=== PATIENT | female | born 1990 | race Two or more races ===

== ENCOUNTER 2016-06-28 15:48 | Emergency (ER) | payer OTHER ==
[2016-06-28 16:06] VITALS: BP 123/69; PULSE 105; TEMP 97.5; BMI 21.2
--- NOTE | 2016-06-28 18:14 | PDOC ---
History of Present Illness - General Chief Complaint: Chest Pain Stated Complaint: CHEST PAIN, HIGH BLOOID PRESSURE Time Seen by Provider: 06/28/16 17:29 History Source: Patient Exam Limitations: No Limitations - History of Present Illness Initial Comments: 06/28/16 18:11 Chief complaint: Chest tightness, choking sensation, palpitations, shakiness, realized numbness feeling and elevated blood pressure at work today History of present illness: Patient is a 25-year-old female with questionable thyroid disorder here today due to sudden onset of chest tightness choking sensation and shortness of breath with palpitations and shakiness and generalized paresthesia with elevated blood pressure while at work today stating approximately 2 hours. 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 Patient is not on any control. Patient reports that she was told by her primary care provider that she had a thyroid problem and needed to have further testing which she did not this past year. Patient reports that she has had these same symptoms intermittently for 2 years. Reports that she was worried today about her being sick recently. She denies any edema of her legs. Or any recent travel. Patient reports that she had been sick approximately 1 week ago with influenza-like symptoms. Patient denies any cough or sore throat nasal congestion, nausea or vomiting. She denies feeling depressed. 06/28/16 18:14 06/28/16 18:52 06/28/16 18:52 Timing/Duration: intermittent Severity: mild Associated Symptoms: reports: chest pain (tightness), shortness of breath (with chest tightness), other (today at work sudden onset of palpitations, choking sensation, chest tightness, shakiness, generalized parenthesia lasted approx 2 hrs ). denies: cough Past History - Past Medical History Allergies/Adverse Reactions: Allergies Allergy/AdvReac Type Severity Reaction Status Date / Time No Known Allergies Allergy Verified 06/28/16 16:00 Home Medications: Ambulatory Orders NK [No Known Home Medication] 07/16/15 Other medical history: denies - Psycho/Social/Smoking Cessation Hx Anxiety: No Suicidal Ideation: No Smoking History: Never smoked Hx Alcohol Use: No Drug/Substance Use Hx: No Substance Use Type: None Review of Systems - Review of Systems Able to Perform ROS?: Yes Constitutional: No: Symptoms Reported HEENTM: No: Symptoms Reported, Difficulty Swallowing Respiratory: Yes: Shortness of Breath (when having chest tightness) Cardiac (ROS): Yes: Palpitations, Chest Tightness. No: Chest Pain ABD/GI: No: Symptoms Reported : No: Symptoms Reported Musculoskeletal: No: Symptoms Reported Integumentary: No: Symptoms Reported Neurological: No: Symptoms reported *Physical Exam - Vital Signs Last Vital Signs Temp Pulse Resp BP Pulse Ox 97.5 F L 105 H 16 123/69 100 06/28/16 16:00 06/28/16 16:00 06/28/16 16:00 06/28/16 16:00 06/28/16 16:00 - Physical Exam General Appearance: Yes: Appropriately Dressed HEENT: positive: Normal ENT Inspection Neck: negative: Tender, Decreased range of motion, Lymphadenopathy (R), Lymphadenopathy (L), Rigidity, Tender lateral, Tender midline, Thyromegaly Respiratory/Chest: positive: Lungs Clear, Normal Breath Sounds. negative: Chest Tender, Respiratory Distress Cardiovascular: positive: Regular Rhythm, Regular Rate, S1, S2 Integumentary: positive: Normal Color Neurologic: positive: Alert, Normal Response, Responsive Heart Score/ECG Review - ECG Impressions Comment:: 06/28/16 18:[address] Daisy padilla's ED Treatment Course - LABORATORY CBC & Chemistry Diagram: 06/28/16 18:44 Medical Decision Making - Medical Decision Making 06/28/16 18:14 Patient is a 25-year-old female with questionable thyroid disorder here today due to sudden onset of chest tightness choking sensation and shortness of breath with palpitations and shakiness and generalized paresthesia with elevated blood pressure while at work today stating approximately 2 hours. 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 Patient is not on any control. Patient reports that she was told by her primary care provider that she had a thyroid problem and needed to have further testing which she did not this past year. Patient reports that she has had these same symptoms intermittently for 2 years. Reports that she was worried today about her being sick recently. She denies any edema of her legs. Or any recent travel. Patient reports that she had been sick approximately 1 week ago with influenza-like symptoms. Patient denies any cough or sore throat nasal congestion, nausea or vomiting. Patient reports that she does not use control. 06/28/16 18:55 Rule out anemia Rule out thyroid dysfunction Rule out panic attack like symptoms Plan: CBC with differential TSH free T 3 Free T4 Urine hCG 06/28/16 19:13 Laboratory Tests 06/28/16 18:44 WBC 8.0 RBC 4.42 Hgb 13.1 Hct 39.4 MCV 89.2 MCHC 33.3 RDW 13.2 Plt Count 287 MPV 9.5 Neutrophils % 81.7 Lymphocytes % 12.7 Monocytes % 5.2 Eosinophils % 0.2 Basophils % 0.2 06/28/16 19:36 Laboratory Tests 06/28/16 06/28/16 18:44 18:44 TSH 0.57 Free T4 1.22 06/28/16 19:37 06/28/16 20:02 Laboratory Tests 06/28/16 06/28/16 06/28/16 18:44 18:44 18:44 TSH 0.57 Free T4 1.22 Free T3 Pending Urine HCG, Qual 06/28/16 19:40 TSH Free T4 Free T3 Urine HCG, Qual Negative Follow Up with your primary care provider within the next few days *DC/Admit/Observation/Transfer Diagnosis at time of Disposition: Feeling of chest tightness - Discharge Dispostion Disposition: HOME Condition at time of disposition: Stable - Referrals Referrals: Alejo Meraz MD [Primary Care Provider] - - Patient Instructions Additional Instructions: Follow up with your care provider within the next 2 days Return to emergency room if any difficulty breathing Patient voiced understanding of discharge instructions and all questions were answered - Post Discharge Activity Work/School Note: Back to Work
[2016-06-28 18:50] LABS: BASOPHIL 0.2 % (0-2.0); EOSINOPHIL 0.2 % (0-4.5); MCH 29.7 pg (25.7-33.7); MCHC 33.3 g/dl (32.0-36.0); MEAN CELL VOLUME 89.2 fl (80-96); MEAN PLT VOLUME 9.5 fl (7.5-11.1); NEUTROPHILS 81.7 % (42.8-82.8); PLATELET COUNT 287 K/MM3 (134-434); RDW 13.2 % (11.6-15.6)
--- NOTE | 2016-06-30 15:11 | EKG ---
Test Reason : Blood Pressure : / mmHG Vent. Rate : 090 BPM Atrial Rate : 090 BPM P-R Int : 116 ms QRS Dur : 074 ms QT Int : 338 ms P-R-T Axes : 068 029 000 degrees QTc Int : 413 ms POOR DATA QUALITY, INTERPRETATION MAY BE ADVERSELY AFFECTED NORMAL SINUS RHYTHM NORMAL ECG NO PREVIOUS ECGS AVAILABLE Confirmed by REX BENAVIDEZ MD ([id number]) on 06/30/2016 3:11:06 PM Referred By: Confirmed By:REX BENAVIDEZ MD
== END 2016-06-28 20:25 | disposition home or self-care (01) ==
LOC: JER 15:48 → JERFT 15:48
DX: R07.89 Other chest pain (principal)
CPT/HCPCS: 36415; 84439; 84443; 84481; 84703; 85025; 93005; 93010; 99281-25

== ENCOUNTER 2016-11-09 21:07 | Emergency (ER) | payer OTHER ==
[2016-11-09 21:59] VITALS: BP 125/75; PULSE 82; TEMP 98.2; BMI 21.2
--- NOTE | 2016-11-09 23:17 | PDOC ---
History of Present Illness - General History Source: Patient <Jc Titus - Last Filed: 11/09/16 23:26> - General History Source: Patient Exam Limitations: No Limitations - History of Present Illness Initial Comments: 11/09/16 23:32 The patient is a 26 year old female with significant past medical history migraine headache and anxiety who presents to the ED for few months of intermittent right-sided chest pain. Patient describes her chest pain as sharp in nature with no exacerbating or alleviating factors. Denies lightheadedness, diaphoresis, SOB, palpitations, jaw pain, shoulder pain, arm pain, nausea, or vomiting. States having similar symptoms in the past, where she had a normal ECG. Patient also has complaints of left-sided headache and neck pain with right eye blurry vision. She states her headache is different from her normal migraine headaches. Denies paresthesias or bladder/urinary incontinence. The patient denies fever, chills, cough, abdominal pain, and diarrhea. Allergies: NKDA Social History: No alcohol, tobacco, or drug use reported. Past Surgical History: None reported PCP: Dr. Alejo Meraz <Winnie Gracia - Last Filed: 11/09/16 23:33> - General Chief Complaint: Migraine Headache Stated Complaint: CHEST PAIN Time Seen by Provider: 11/09/16 22:53 Past History - Psycho/Social/Smoking Cessation Hx Anxiety: No Suicidal Ideation: No Smoking History: Never smoked Have you smoked in the past 12 months: No Information on smoking cessation initiated: No Hx Alcohol Use: No Drug/Substance Use Hx: No Substance Use Type: None <Jc Titus - Last Filed: 11/09/16 23:26> <Winnie Gracia - Last Filed: 11/09/16 23:33> - Past Medical History Allergies/Adverse Reactions: Allergies Allergy/AdvReac Type Severity Reaction Status Date / Time No Known Allergies Allergy Verified 06/28/16 16:00 Home Medications: Ambulatory Orders Metoclopramide HCl [Reglan] 10 mg PO BID #20 tablet 11/09/16 Naproxen [Naprosyn -] 500 mg PO BID #20 tablet 11/09/16 Review of Systems - Review of Systems Able to Perform ROS?: Yes Comments:: 11/09/16 23:32 CONSTITUTIONAL: Absent: fever, no chills, no fatigue EYES: +right eye blurry vision ENT: +neck pain Absent: ear pain, no sore throat CARDIOVASCULAR: +right-sided chest pain Absent: no palpitations RESPIRATORY: Absent: cough, no SOB GI: Absent: abdominal pain, no nausea, no vomiting, no constipation, no diarrhea GENITOURINARY: Absent: dysuria, no frequency, no hematuria MUSCULOSKELETAL: Absent: back pain, no arthralgia, no myalgia SKIN: Absent: rash NEURO: +left sided headache <Winnie Gracia - Last Filed: 11/09/16 23:33> *Physical Exam - Vital Signs Last Vital Signs Temp Pulse Resp BP Pulse Ox 98.2 F 82 14 125/75 99 11/09/16 21:56 11/09/16 21:56 11/09/16 21:56 11/09/16 21:56 11/09/16 21:56 <Jc Titus - Last Filed: 11/09/16 23:26> - Vital Signs Last Vital Signs Temp Pulse Resp BP Pulse Ox 98.2 F 82 14 125/75 99 11/09/16 21:56 11/09/16 21:56 11/09/16 21:56 11/09/16 21:56 11/09/16 21:56 - Physical Exam Comments: 11/09/16 23:32 GENERAL: Well-appearing, well-nourished. No apparent distress. HEENT: Normocephalic, atraumatic. PERRL, EOM intact. CARDIOVASCULAR: Normal S1, S2. Regular rate and rhythm. PULMONARY: Clear to auscultation bilaterally. ABDOMEN: Soft, non-distended, non-tender. EXTREMITIES: Normal ROM in all four extremities. No gross deformities. SKIN: Warm, dry. No rash NEUROLOGICAL: No focal neurological deficits. <Winnie Gracia - Last Filed: 11/09/16 23:33> Heart Score/ECG Review - ECG Impressions Comment:: 11/09/16 23:21 NSR @81bpm Normal ECG <Winnie Gracia - Last Filed: 11/09/16 23:33> Medical Decision Making - Medical Decision Making 11/09/16 23:28 Dr. Sinisterra: The scribe's documentation has been prepared under my direction and personally reviewed by me in its entirery. I confirm that the note above accurately reflects all work, treatment, procedures, and medical decision making performed by me. <Jc Titus - Last Filed: 11/09/16 23:26> *DC/Admit/Observation/Transfer - Discharge Dispostion Admit: No <Jc Titus - Last Filed: 11/09/16 23:26> - Attestations Scribe Attestion: 11/09/16 23:32 Documentation prepared by Winnie Gracia, acting as medical health researcher for Jc Titus MD/DO. <Winnie Gracia - Last Filed: 11/09/16 23:33> Diagnosis at time of Disposition: Headache Qualifiers: Headache type: unspecified Headache chronicity pattern: unspecified pattern Intractability: not intractable Qualified Code(s): R51 - Headache - Discharge Dispostion Disposition: HOME Condition at time of disposition: Stable - Prescriptions Prescriptions: Naproxen [Naprosyn -] 500 mg PO BID #20 tablet Metoclopramide HCl [Reglan] 10 mg PO BID #20 tablet - Referrals Referrals: Alejo Meraz MD [Primary Care Provider] - - Patient Instructions Printed Discharge Instructions: DI for Headache
[2016-11-09] MEDS ORDERED: NAPROXEN 500 MG TABLET (FP) PO ONE (23:24)
[2016-11-09] MEDS ORDERED: METOCLOPRAMIDE HCL 10 MG TABLET (FP) PO ONE ×2 (23:24→23:27)
[2016-11-09] MEDS ORDERED: NAPROXEN 500 MG TABLET (FP) ONE (23:26)
--- NOTE | 2016-11-10 11:33 | EKG ---
Test Reason : Blood Pressure : / mmHG Vent. Rate : 081 BPM Atrial Rate : 081 BPM P-R Int : 140 ms QRS Dur : 068 ms QT Int : 336 ms P-R-T Axes : 052 036 038 degrees QTc Int : 390 ms NORMAL SINUS RHYTHM NORMAL ECG WHEN COMPARED WITH ECG OF 28-JUN-2016 16:11, T WAVE INVERSION NO LONGER EVIDENT IN INFERIOR LEADS Confirmed by REX BENAVIDEZ MD ([id number]) on 11/10/2016 11:33:18 AM Referred By: Confirmed By:REX BENAVIDEZ MD
== END 2016-11-10 00:25 | disposition home or self-care (01) ==
LOC: JER 21:07
DX: R51 Headache (principal); G43.909 Migraine, unspecified, not intractable, without status migrainosus
CPT/HCPCS: 84703; 93005; 93010; 99281-25

== ENCOUNTER 2017-07-10 17:36 | Emergency (ER) | payer OTHER ==
[2017-07-10 18:03] VITALS: BP 117/76; PULSE 92; TEMP 98.6; BMI 20.9
--- NOTE | 2017-07-10 18:07 | PDOC ---
Rapid Medical Evaluation Chief Complaint: Pain, Acute Time Seen by Provider: 07/10/17 18:03 Medical Evaluation: Allergies Allergy/AdvReac Type Severity Reaction Status Date / Time No Known Allergies Allergy Verified 07/10/17 18:00 07/10/17 18:03 I performed a brief in-person evaluation of this patient. This patient presents with a chief complaint of pain in lower abdomen worse on the left than the right. Also reports pressure in mid lower abdomen with urination. Denies fever or chills Pertinent physical exam findings: NAD lungs clear bilateral abdomen mild tenderness to mid suprapubic area no cva tenderness I have ordered the following: urinalysis and urine culture The patient will proceed to the ED for further evaluation.
[2017-07-10 18:50] LABS: URINE APPEARANCE CLEAR; URINE BILIRUBIN NEGATIVE (NEGATIVE); URINE BLOOD NEGATIVE (NEGATIVE); URINE COLOR COLORLESS; URINE GLUCOSE (UA) NEGATIVE (NEGATIVE); URINE KETONE NEGATIVE (NEGATIVE); URINE LEUK ESTERASE NEGATIVE (NEGATIVE); URINE NITRITE NEGATIVE (NEGATIVE); URINE PROTEIN NEGATIVE (NEGATIVE); URINE UROBILINOGEN NEGATIVE mg/dL (0.2-1.0)
--- NOTE | 2017-07-10 19:20 | PDOC ---
History of Present Illness - General Chief Complaint: Pain, Acute Stated Complaint: PAIN, ACUTE Time Seen by Provider: 07/10/17 18:03 History Source: Patient Exam Limitations: No Limitations - History of Present Illness Initial Comments: 07/10/17 19:05 Patient is a 26-year-old female with history of endometriosis and right ovarian cyst presents with a left lateral lower abdominal pain for 3 days. Patient reports having tactile fever 2 days ago. Patient reports a pressure when having to urinate. Last menses on 05/28 and again on 06/24 usually last for 7 days however last was only 5 days. She was seen in the office of Dr. Francisco two weeks ago, ultrasound was performed and it showed a large cyst on the right small on the left. No N/V/D. no fever Past Medical History: Endometriosis, anxiety Allergies: No known allergies Medications: [Over the counter herbal meds] Family History: Non-contributory Social History: Denies smoking, alcohol use, or IVDU Review of Systems GENERAL/CONSTITUTIONAL: [No fever or chills. No weakness. No weight change.] HEAD, EYES, EARS, NOSE AND THROAT: [No change in vision. No ear pain or discharge. No sore throat. ] CARDIOVASCULAR: [No chest pain or shortness of breath.] RESPIRATORY: [No cough, wheezing, or hemoptysis.] GASTROINTESTINAL: [No nausea, vomiting, diarrhea or constipation. No rectal bleeding.] GENITOURINARY: [No dysuria, frequency, or change in urination.] MUSCULOSKELETAL: [No joint or muscle swelling or pain. No neck or back pain.] SKIN AND BREASTS: [No rash or easy bruising.] NEUROLOGIC: [No headache, vertigo, loss of consciousness, or loss of sensation.] PSYCHIATRIC: [No depression or anxiety.] ENDOCRINE: [No increased thirst. No abnormal weight change.] HEMATOLOGIC/LYMPHATIC: [No anemia, easy bleeding, or history of blood clots.] ALLERGIC/IMMUNOLOGIC: [No hives or skin allergy. No latex allergy.] Physical Exam: GENERAL: [The patient is awake, alert, and fully oriented, in no acute distress. ] HEAD: [Normal with no signs of trauma.] EYES: [Pupils equal, round and reactive to light, extraocular movements intact, sclera anicteric, conjunctiva clear.] ENT: [Ears normal, nares patent, oropharynx clear without exudates. Moist mucous membranes. No uvula deviation] NECK: [Normal range of motion, supple without lymphadenopathy, JVD, or masses.] LUNGS: [Breath sounds equal, clear to auscultation bilaterally. No wheezes, and no crackles.] HEART: [Regular rate and rhythm, normal S1 and S2 without murmur, rub or gallop. ] ABDOMEN: [Soft, normoactive bowel sounds. Generalized pain on palpation to abdomen more on suprapubic area. No guarding, no rebound. No masses. No bruising or abrasions] MUSCULOSKELETAL: [Normal range of motion, no edema. No clubbing or cyanosis. No cords, erythema, or tenderness. No CVA Tenderness with fist palpation.] NEUROLOGICAL: [Cranial nerves II through XII grossly intact. Normal speech, normal gait.] PSYCH: [Normal mood, normal affect.] SKIN: [Warm, Dry, normal turgor, no rashes or lesions noted.] Past History - Past Medical History Allergies/Adverse Reactions: Allergies Allergy/AdvReac Type Severity Reaction Status Date / Time No Known Allergies Allergy Verified 07/10/17 18:00 Home Medications: Ambulatory Orders NK [No Known Home Medication] 11/09/16 COPD: No DVT: No - Immunization History Immunization Up to Date: Yes - Suicide/Smoking/Psychosocial Hx Smoking History: Never smoked Have you smoked in the past 12 months: No Information on smoking cessation initiated: No Hx Alcohol Use: No Drug/Substance Use Hx: No Substance Use Type: None *Physical Exam - Vital Signs Last Vital Signs Temp Pulse Resp BP Pulse Ox 98.6 F 92 H 16 117/76 100 07/10/17 18:00 07/10/17 18:00 07/10/17 18:00 07/10/17 18:00 07/10/17 18:00 ED Treatment Course - LABORATORY CBC & Chemistry Diagram: 07/10/17 19:45 07/10/17 19:45 Medical Decision Making - Medical Decision Making 07/10/17 19:21 A/P: Patient here for evaluation of left lateral abdominal and torso pain however on physical examination patient is noted to have more of a suprapubic pain. Urinalysis, urine culture and urine were sent awaiting results 07/10/17 19:30 Laboratory Results - last 24 hr 07/10/17 07/10/17 18:25 19:15 Urine Color Colorless Urine Appearance Clear Urine pH 7.0 Ur Specific [place] 1.003 Urine Protein Negative Urine Glucose (UA) Negative Urine Ketones Negative Urine Blood Negative Urine Nitrite Negative Urine Bilirubin Negative Urine Urobilinogen Negative Ur Leukocyte Esterase Negative Urine HCG, Qual Negative Urine and urinalysis are negative. 07/10/17 19:51 Patient to be transferred to main emergency department for higher level of care , CBC, CMP, lipase ordered, CBC of abdomen and pelvis with IV contrast. Patient has recently had an ultrasound with which demonstrated bilateral ovarian cysts. Report to Nisha charge nurse and Yessica Pereira nurse practitioner. Patient ambulatory and stable for transfer. *DC/Admit/Observation/Transfer Diagnosis at time of Disposition: Ovarian cyst - Discharge Dispostion Disposition: HOME Condition at time of disposition: Stable - Referrals Referrals: Alejo Meraz MD [Primary Care Provider] - Dennis Moreno MD [Staff Physician] - - Patient Instructions Printed Discharge Instructions: DI for Ovarian Cyst Additional Instructions: Please follow up with Dr. Moreno as discussed. You may take Motrin pain. If you develop any severe abdominal pain, vaginal bleeding, or any new or worsening symptoms, please return to the ER. - Post Discharge Activity
[2017-07-10 19:50] LABS: BASO % 0.2 % (0-2.0); HEMOGLOBIN 13.6 GM/dL (10.7-15.3); MCH 30.1 pg (25.7-33.7); MCHC 33.3 g/dl (32.0-36.0); MEAN CELL VOLUME 90.3 fl (80-96); MEAN PLT VOLUME 9.5 fl (7.5-11.1); MONO % 7.8 % (3.8-10.2); PLATELET COUNT 225 K/MM3 (134-434); RBC 4.54 M/mm3 (3.60-5.2); RDW 13.5 % (11.6-15.6); WHITE BLOOD COUNT 4.6 K/mm3 (4.0-10.0)
--- NOTE | 2017-07-10 19:54 | PDOC ---
*Physical Exam - Vital Signs Last Vital Signs Temp Pulse Resp BP Pulse Ox 98.6 F 92 H 16 117/76 100 07/10/17 18:00 07/10/17 18:00 07/10/17 18:00 07/10/17 18:00 07/10/17 18:00 - Physical Exam Comments: 07/10/17 19:52 Sign-out received from fast track provider Andolino. Pt interviewed and examined. In short, patient is a 26 yo F with hx of endometriosis and ovarian cysts, presenting with L flank pain and abdominal pain x 3 days. Patient had ultrasound performed by IDANIA Moreno 2 weeks ago, positive for R ovarian cyst. Urine negative for UTI. Labs, CT ordered in fast track, will review. 07/10/17 20:28 Labs, urine unremarkable. Patient reassessed, awaiting CT. Patient refuses Toradol and Motrin, states "I can deal with this pain now, I don't like taking medicine." 07/10/17 23:58 CT results positive for ovarian cysts. Patient eloped prior to receiving CT results. ED Treatment Course - LABORATORY CBC & Chemistry Diagram: 07/10/17 19:45 07/10/17 19:45 - ADDITIONAL ORDERS Additional order review: Laboratory Results 07/10/17 07/10/17 19:15 18:25 Urine Color Colorless Urine Appearance Clear Urine pH 7.0 Ur Specific [place] 1.003 Urine Protein Negative Urine Glucose (UA) Negative Urine Ketones Negative Urine Blood Negative Urine Nitrite Negative Urine Bilirubin Negative Urine Urobilinogen Negative Ur Leukocyte Esterase Negative Urine HCG, Qual Negative 07/10/17 19:45 RBC 4.54 MCV 90.3 MCHC 33.3 RDW 13.5 MPV 9.5 Neutrophils % 64.0 D Lymphocytes % 27.0 D Monocytes % 7.8 Eosinophils % 1.0 D Basophils % 0.2 *DC/Admit/Observation/Transfer Diagnosis at time of Disposition: Ovarian cyst - Discharge Dispostion Disposition: HOME Condition at time of disposition: Stable Admit: No - Referrals Referrals: Alejo Meraz MD [Primary Care Provider] - Dennis Moreno MD [Staff Physician] - - Patient Instructions Printed Discharge Instructions: DI for Ovarian Cyst Additional Instructions: Please follow up with Dr. Moreno as discussed. You may take Motrin pain. If you develop any severe abdominal pain, vaginal bleeding, or any new or worsening symptoms, please return to the ER. - Post Discharge Activity
[2017-07-10 20:14] LABS: ALBUMIN 4.5 g/dl (3.4-5.0); ALK PHOS 141 U/L (45-117); ANION GAP 8 (8-16); BILIRUBIN,TOTAL 0.3 mg/dL (0.2-1.0); BLOOD UREA NITROGEN 8 mg/dL (7-18); CALCIUM 8.7 mg/dL (8.5-10.1); CHLORIDE 102 mmol/L (98-107); CO2 28 mmol/L (21-32); CREATININE 0.7 mg/dL (0.55-1.02); GLUCOSE,RANDOM 89 mg/dL (74-106); POTASSIUM 4.1 mmol/L (3.5-5.1); SGOT/AST 36 U/L (15-37); SGPT/ALT 54 U/L (12-78); SODIUM 138 mmol/L (136-145); TOT PROT 8.2 g/dl (6.4-8.2)
== END 2017-07-11 00:31 | disposition home or self-care (01) ==
LOC: JERFT 17:36 → JER 17:36
DX: N83.201 Unspecified ovarian cyst, right side (principal)
CPT/HCPCS: 36415; 74176-TC; 80053; 81003; 83690; 84703; 85025; 87086; 99282-25

== ENCOUNTER 2018-07-31 05:00 | Day surgery (SDC) | payer OTHER ==
[2018-07-30 10:43] VITALS: BMI 22.3
[2018-07-31] MEDS ORDERED: BUPIVACAINE HCL/PF 0.5% (5MG/ML) 10 ML VIAL ONE (07:44)
--- NOTE | 2018-07-31 07:48 | HP ---
History & Physical Update - Physical Physical: No Change - Assessment Assessment: No Change - Plan Plan: No Change (H&P reviwed, no changes, for laparoscopy ovarian cystectomy)
[2018-07-31] MEDS ORDERED: SODIUM CHLORIDE 0.9% P/F 10 ML VIAL IJ ONE (07:58)
[2018-07-31] MEDS ORDERED: ceFAZolin SODIUM 1 GM VIAL ONE (07:58)
[2018-07-31] MEDS ORDERED: LIDOCAINE HCL/PF 2% SDV 5ML VIAL ONE (07:58)
[2018-07-31] MEDS ORDERED: ROCURONIUM BROMIDE 50 MG/5 ML VIAL ONE (08:08)
[2018-07-31] MEDS ORDERED: MIDAZOLAM HCL 2 MG/2 ML SINGLE DOSE VIAL ONE (08:21)
[2018-07-31] MEDS ORDERED: ESMOLOL HCL 100,000 MCG/10 ML VIAL ONE (08:35)
[2018-07-31] MEDS ORDERED: ONDANSETRON 4 MG/2 ML VIAL IVPUSH PRN ×2 (08:43→10:53)
[2018-07-31] MEDS ORDERED: LACTATED RINGERS SOLUTION 1,000 ML IV SCH (08:45)
[2018-07-31] MEDS ORDERED: ceFAZolin SODIUM 1 GM VIAL IVPB ONE (09:15)
[2018-07-31] MEDS ORDERED: BACITRACIN 15 GM TUBE TOPICAL OINTMENT ONE (09:36)
[2018-07-31] MEDS ORDERED: NEOSTIGMINE METHYLSULFATE 0.5 MG/ML - 10 ML MDV ONE (09:50)
[2018-07-31] MEDS ORDERED: GLYCOPYRROLATE 0.2 MG/1 ML VIAL ONE (09:51)
[2018-07-31] MEDS ORDERED: KETOROLAC TROMETHAMINE 30 MG/1 ML VIAL ONE (09:51)
[2018-07-31] MEDS ORDERED: BUPIVACAINE HCL/PF 0.5% (5MG/ML) 10 ML VIAL IJ ONE (10:19)
[2018-07-31] MEDS ORDERED: oxyCODONE HCL 5 MG TABLET PO PRN (10:53)
[2018-07-31] MEDS ORDERED: IBUPROFEN 800 MG/8 ML IJ IVPB PRN (10:53)
[2018-07-31] MEDS ORDERED: IBUPROFEN 600 MG TABLET (FP) PO PRN (10:53)
[2018-07-31] MEDS ORDERED: ELECTROLYTE-148 SOLN 1,000 ML IV SCH (11:00)
[2018-07-31] MEDS ORDERED: ONDANSETRON 4 MG/2 ML VIAL ONE (13:10)
[2018-07-31] MEDS ORDERED: ONDANSETRON 4 MG/2 ML VIAL IVPB ONE (13:10)
--- NOTE | 2018-07-31 13:21 | OP ---
DATE OF OPERATION: 07/31/2018 PREOPERATIVE DIAGNOSES: Bilateral ovarian cysts, pelvic pain, rule out endometrioma. 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 SURGEON: Dennis Brownlee MD BUSINESS SUPPORT ADMINISTRATOR: Yari Tomlin MD ESTIMATED BLOOD LOSS: About 25 mL. DESCRIPTION OF OPERATION: Patient was taken to the operating room. Under adequate general anesthesia in dorsal lithotomy position, examination under anesthesia revealed external genitalia to be normal. Vagina was normal. Cervix was clean, no lesion. Uterus normal size. Adnexa: Palpable right adnexa in the cul-de-sac were noted. Then, with a weighted speculum in the vagina, anterior lip of the cervix was grasped with a single-tooth tenaculum. Hulka was introduced into the uterine cavity for manipulation. Then, Harrington was inserted. Patient was placed in dorsal lithotomy position, and a small infraumbilical skin incision was made. With a direct Visiport, a 5-mm trocar was introduced through the umbilical area. Then, camera was introduced, and under direct vision, a 10-mm trocar was introduced through the left hypogastric area and a 5-mm through the right hypogastric area. Visualization of the upper abdomen showed to be normal. Pelvic cavity: There was colon adherent to the cul-de-sac, and then, also, a large, 6-cm approximately endometrioma with a smooth surface cyst in the cul-de-sac with the right tube adherent to the surface of endometrioma. This cyst was also adherent to the uterosacral ligament, and there was evidence of endometriotic lesion on the bladder and also in the cul-de-sac area over the uterosacral ligament bilaterally. Then, also, there was a left ovarian cyst with endometriosis lesion on the surface of the ovary, and the left ovary also was adherent to the back of the uterus. At this time, the right ovary with the cyst was grasped, and then, the adhesions meticulously were lysed with the cautery and blunt dissection. The ovary was removed from the cul-de-sac area and brought up. Then, the right ovary was grasped with a grasper and then with LigaSure cautery, grasped, and the inner part of the cyst was entered. Then, there was a large amount of dark, old blood in the cyst which was drained, and then, the cyst sac was grasped with a grasper and dissected from the ovary completely. The edges of the ovary were cauterized, and hemostasis was established. At this time, the right ovary was irrigated. No active bleeding was seen. Then, the left ovary at this time was grasped, and then, adhesions were released from the cul-de-sac area with cautery and blunt dissection. Then, the ovary was released. Then, the ovary was entered. There was a 3-cm endometrioma which was drained, and the cyst wall was dissected from the ovary and removed. Hemostasis was established, and then, pelvic cavity several times irrigated. No active bleeding was seen. Both ovaries were freed from the cul-de-sac, and both tubes appeared to be normal. The pelvic cavity irrigated and then after irrigation, again, inner part of the ovary was inspected, and no bleeding was seen. At this time, Surgicel was placed in the inner part of both ovaries for complete hemostasis. Then, Interceed was wrapped around both ovaries. Then, at this time, the abdomen was emptied of all the gas. There was no bleeding. The left 10-mm trocar incision, the fascia, was closed with interrupted suture of 2-0 Vicryl. Then, the umbilical area also was closed with interrupted suture of 0 Vicryl, and the skin was closed with 4-0 Biosyn interrupted suture. Patient tolerated the procedure well, left the OR in good condition. DENNIS BROWNLEE M.D. [id number]
[2018-07-31] MEDS ORDERED: IBUPROFEN 600 MG TABLET (FP) PO ONE (14:18)
[2018-07-31 14:55] VITALS: BP 120/69; PULSE 86; TEMP 98
--- NOTE | 2018-08-01 14:35 | PATH ---
Cytology Non-Gynecological Report Patient Name: LUISITO ONTIVEROS [facility]. Rec. #: [id number] /Age/Gender: 1990 (Age: 27) / F Account: [id number] Location: [facility] SURGICAL Taken: 07/31/2018 Received: 07/31/2018 Reported: 08/01/2018 Physicians: Dennis Moreno M.D. Specimen(s) Received PELVIC WASHINGS Clinical History Ovarian cyst, endometriosis Final Diagnosis PELVIC WASHING FOR CYTOLOGY: SATISFACTORY FOR EVALUATION. NO MALIGNANT CELLS IDENTIFIED. MESOTHELIAL CELLS IN HEMORRHAGIC BACKGROUND AND SCATTERED MIXED INFLAMMATORY CELLS. Comment: See concurrent material ( [id number]). Electronically Signed Zakia Benton M.D. Gross Description Approximately 35 cc of hemorrhagic fluid received fresh. One cytofunnel prepared and Pap stained. One cellblock prepared.
--- NOTE | 2018-08-06 13:12 | PATH ---
Surgical Pathology Report Patient Name: LUISITO ONTIVEROS [facility]. Rec. #: [id number] /Age/Gender: 1990 (Age: 27) / F Account: [id number] Location: [facility] SURGICAL Taken: 07/31/2018 Received: 07/31/2018 Reported: 08/06/2018 Physicians: Dennis Moreno M.D. Specimen(s) Received A: RIGHT OVARIAN CYST WALL B: LEFT OVARIAN CYST WALL Clinical History Endometriosis, ovarian cyst right side and left side Final Diagnosis A. OVARIAN CYST WALL, RIGHT, EXCISION: ENDOMETRIOTIC CYST. SEE COMMENT. B. OVARIAN CYST WALL, LEFT, EXCISION: CONSISTENT WITH CORPUS LUTEUM CYST. FOCAL ENDOMETRIOSIS. SEE COMMENT. Comment: Immunohistochemical stains performed at [place], [place] ([id number]) and interpreted at [facility] show CD10 (A & B) highlights endometrial stroma, supporting the above diagnosis. Electronically Signed Zakia Benton M.D. Gross Description A. Received in formalin labeled "right ovarian cyst wall," are 2 brown bryson portions of soft tissue measuring 2.6 x 1.2 x 0.5 cm and 3.7 x 0.9 x 0.8 cm, consistent with portions of cyst wall. Sectioning reveals a brown, hemorrhagic inner lining. Contract Assistant sections are submitted in 2 cassettes. B. Received in formalin labeled "left ovarian cyst wall," is a 2.1 x 1.5 x 0.2 cm aggregate of brown-yellow soft tissue fragments, consistent with a disrupted corpus luteum. The specimen is submitted in toto in one cassette. /07/31/201807/31/2018
== END 2018-07-31 14:50 | disposition home or self-care (01) ==
LOC: JASU-SURG 05:00
PROVIDERS: ATTEND Obstetrics & Gynecology
PROC: 0UB24ZZ Excision of Bilateral Ovaries, Percutaneous Endoscopic Approach (ICD-10-PCS; principal; 2018-07-31 09:00)
DX: N83.202 Unspecified ovarian cyst, left side (principal); N83.201 Unspecified ovarian cyst, right side; N80.1 Endometriosis of ovary; N80.3 Endometriosis of pelvic peritoneum
CPT/HCPCS: 88108; 88305-TC; 94760